=== PATIENT | male | born 1955 | race African-American/Black ===

== ENCOUNTER 2019-07-12 09:56 | Observation (INO) ==
[2019-07-12 11:14] LABS: Basophils % 0.2 % (0.0-0.8); Eosinophils % 0.3 % (0.00-10.9); Hematocrit 22.5 VOL% (42.0-52.0); Hemoglobin 6.8 GM/DL (14.0-18.0); Immature Granulocytes % 0.5 %; Immature Granulocytes Absolute 0.03 #; Lymphocytes # 0.9 10*3/uL (1.4-4.0); Lymphocytes % 14.4 % (21.2-54.2); Mean Corpuscular HGB Conc 30.2 GM/DL (32-36); Mean Corpuscular Volume 98.3 FL (87-102); Mean Platelet Volume 10.4 FL (9.6-12.0); Monocytes % 5.3 % (1.7-12.7); Neutrophils % 79.3 % (38.7-73.9); Platelet Count 235 T/CUMM (130-400); Red Blood Count 2.29 MC/CUMM (3.8-5.5); White Blood Count 6.4 T/CUMM (4-12)
[2019-07-12 11:42] LABS: Albumin 2.3 G/DL (3.4-5.0); Bilirubin,Total 0.4 MG/DL (0.2-1.0); Ferritin 164.1 ng/ml (26-388); Osmolality,Calculated 303.5 MOS/KG (273-304); Total Protein 6.3 G/DL (6.4-8.3)
[2019-07-12] MEDS ORDERED: SODIUM CHLORIDE 0.9% 500 ML IV STA (12:11)
[2019-07-12] MEDS ORDERED: DEXTROSE 50% 25 GM/50 ML VIAL IV PRN (13:09)
[2019-07-12] MEDS ORDERED: ONDANSETRON 4 MG/2 ML VIAL IV PRN (13:09)
[2019-07-12] MEDS ORDERED: DEXTROSE 10% 250 ML BAG IV PRN (13:09)
[2019-07-12] MEDS ORDERED: GLUCAGON 1 MG VIAL IM PRN ×2 (13:09)
[2019-07-12] MEDS ORDERED: SODIUM CHLORIDE 0.9% 1,000 ML IV PRN (13:16)
[2019-07-12] MEDS ORDERED: AZITHROMYCIN INJ 500 MG in SODIUM CHLORIDE 0.9% 250 ML IV SCH (15:00)
[2019-07-12] MEDS ORDERED: cefTRIAXone 1,000 MG in SODIUM CHLORIDE 0.9% 100 ML IV SCH (15:00)
[2019-07-12] MEDS ORDERED: INSULIN LISPRO 100 UNIT/ML SUBCUT SCH (16:30)
[2019-07-12] MEDS: INSULIN LISPRO 100 UNIT/ML SUBCUT SCH ×2 (16:54→21:59)
[2019-07-12] MEDS: ZINC SULFATE 220 MG CAPSULE PO SCH (21:15)
[2019-07-12] MEDS: HYDROXYCHLOROQUINE 200 MG TABLET PO SCH (21:15)
[2019-07-12 22:02] LABS: Hematocrit 25.8 VOL% (42.0-52.0); Hemoglobin 7.9 GM/DL (14.0-18.0)
[2019-07-13 05:20] LABS: Basophils % 0.1 % (0.0-0.8); Eosinophils # 0.1 10*3/uL (0.0-0.87); Eosinophils % 0.8 % (0.00-10.9); Hemoglobin 7.6 GM/DL (14.0-18.0); Immature Granulocytes % 0.7 %; Immature Granulocytes Absolute 0.05 #; Lymphocytes # 1.1 10*3/uL (1.4-4.0); Lymphocytes % 15.5 % (21.2-54.2); Mean Corpuscular HGB Conc 31.7 GM/DL (32-36); Mean Corpuscular Volume 93.4 FL (87-102); Mean Platelet Volume 10.8 FL (9.6-12.0); Monocytes % 5.5 % (1.7-12.7); Neutrophils % 77.4 % (38.7-73.9); Platelet Count 215 T/CUMM (130-400); Red Blood Count 2.57 MC/CUMM (3.8-5.5); Red Cell Distribution Width 14.6 % (9.3-17.3); White Blood Count 7.3 T/CUMM (4-12)
[2019-07-13 05:47] LABS: Calcium 8.2 MG/DL (8.5-10.1); Osmolality,Calculated 301.7 MOS/KG (273-304)
[2019-07-13] MEDS: INSULIN LISPRO 100 UNIT/ML SUBCUT SCH ×4 (09:07→20:39)
[2019-07-13] MEDS: HYDROXYCHLOROQUINE 200 MG TABLET PO SCH ×2 (09:11→20:39)
[2019-07-13 10:44] LABS: Basophils % 0.1 % (0.0-0.8); Eosinophils # 0.1 10*3/uL (0.0-0.87); Eosinophils % 1.2 % (0.00-10.9); Hematocrit 23.4 VOL% (42.0-52.0); Hemoglobin 7.3 GM/DL (14.0-18.0); Immature Granulocytes % 0.7 %; Immature Granulocytes Absolute 0.05 #; Mean Corpuscular HGB Conc 31.2 GM/DL (32-36); Mean Corpuscular Volume 96.7 FL (87-102); Mean Platelet Volume 10.4 FL (9.6-12.0); Monocytes % 5.1 % (1.7-12.7); Neutrophils % 78.9 % (38.7-73.9); Platelet Count 241 T/CUMM (130-400); Red Blood Count 2.42 MC/CUMM (3.8-5.5); Red Cell Distribution Width 14.6 % (9.3-17.3); White Blood Count 6.8 T/CUMM (4-12)
[2019-07-13 11:25] LABS: Folate > 24.0 NG/ML (5.4-24.0); Vitamin B12 > 2000 PG/ML (211-911)
[2019-07-13 11:50] LABS: Sedimentation Rate-Westergren 132 MM/HR (0-20)
[2019-07-13] MEDS ORDERED: SODIUM CHLORIDE 0.9% 1,000 ML IV PRN (12:03)
[2019-07-13] MEDS ORDERED: FUROSEMIDE 40 MG/4 ML VIAL IV PRN (12:04)
[2019-07-13] MEDS ORDERED: DOCUSATE SODIUM 100 MG CAPSULE PO PRN (12:17)
[2019-07-13] MEDS ORDERED: diphenhydrAMINE CAP 25 MG CAPSULE PO PRN (12:17)
[2019-07-13] MEDS ORDERED: SIMETHICONE CHEW 125 MG TABLET PO PRN (12:17)
[2019-07-13] MEDS ORDERED: LACTULOSE 20 GM/30 ML UDCUP PO PRN (12:17)
[2019-07-13] MEDS ORDERED: traZODone 50 MG TABLET PO PRN (12:17)
[2019-07-13] MEDS ORDERED: DEXTROSE 10% 250 ML BAG IV PRN (12:17)
[2019-07-13] MEDS ORDERED: guaiFENesin/DM ER 600-30 MG TABLET PO PRN (12:17)
[2019-07-13] MEDS ORDERED: ZALEPLON 5 MG CAPSULE PO PRN (12:17)
[2019-07-13] MEDS ORDERED: ALUMINUM/MAGNES/SIMETH MAX STR 30 ML UDCUP PO PRN (12:17)
[2019-07-13] MEDS ORDERED: NICOTINE 21 MG/24 HR PATCH TRANSDERM PRN (12:17)
[2019-07-13] MEDS ORDERED: CALCIUM CARBONATE CHEW 500 MG TABLET PO PRN (12:17)
[2019-07-13] MEDS ORDERED: BISACODYL 5 MG TABLET PO PRN (12:17)
[2019-07-13 19:26] LABS: Hematocrit 28.7 VOL% (42.0-52.0); Hemoglobin 9.1 GM/DL (14.0-18.0)
[2019-07-13] MEDS: carvediloL 12.5 MG TABLET PO SCH (20:39)
[2019-07-13] MEDS ORDERED: amLODIPine 10 MG TABLET PO SCH (21:00)
[2019-07-13] MEDS ORDERED: LIPITOR PO SCH (21:00)
[2019-07-14 05:45] LABS: Bilirubin,Total 0.5 MG/DL (0.2-1.0); Calcium 8.3 MG/DL (8.5-10.1); Osmolality,Calculated 303.8 MOS/KG (273-304); Total Protein 6.6 G/DL (6.4-8.3)
[2019-07-14 08:06] LABS: Folate 17.1 NG/ML (5.4-24.0); Vitamin B12 > 2000 PG/ML (211-911)
[2019-07-14 08:15] LABS: % Iron Saturation 11.3 % (18-50); Ferritin 187.2 ng/ml (26-388)
[2019-07-14 08:38] LABS: Hemoglobin A1 (Alkaline) 97.4 % (96.5-98.5); Hemoglobin A2 (Alkaline) 2.6 % (1.5-3.5)
[2019-07-14 08:44] LABS: Basophils % 0.3 % (0.0-0.8); Eosinophils # 0.1 10*3/uL (0.0-0.87); Eosinophils % 1.3 % (0.00-10.9); Hematocrit 26.5 VOL% (42.0-52.0); Hemoglobin 8.3 GM/DL (14.0-18.0); Immature Granulocytes % 0.7 %; Immature Granulocytes Absolute 0.05 #; Lymphocytes # 0.8 10*3/uL (1.4-4.0); Lymphocytes % 10.2 % (21.2-54.2); Mean Corpuscular HGB Conc 31.3 GM/DL (32-36); Mean Corpuscular Volume 96.4 FL (87-102); Mean Platelet Volume 10.8 FL (9.6-12.0); Monocytes % 7.1 % (1.7-12.7); Neutrophils % 80.4 % (38.7-73.9); Platelet Count 243 T/CUMM (130-400); Red Blood Count 2.75 MC/CUMM (3.8-5.5); Red Cell Distribution Width 15.2 % (9.3-17.3); White Blood Count 7.6 T/CUMM (4-12)
[2019-07-14] MEDS ORDERED: IRON SUCROSE 300 MG in SODIUM CHLORIDE 0.9% 100 ML IV ONE (08:50)
[2019-07-14] MEDS ORDERED: predniSONE 5 MG TABLET PO SCH (09:00)
[2019-07-14] MEDS ORDERED: allopurinoL 100 MG TABLET PO SCH (09:00)
[2019-07-14 09:05] LABS: Hypochromasia Slight; Lymphocytes 17 % (20-55); Segmented Neutrophils 77 % (50-85); Total Cells Counted 100
[2019-07-14 09:06] LABS: Anisocytosis 1+
[2019-07-14 09:07] LABS: Platelet Estimate Normal
[2019-07-14] MEDS: INSULIN LISPRO 100 UNIT/ML SUBCUT SCH ×2 (09:10→11:32)
[2019-07-14] MEDS: HYDROXYCHLOROQUINE 200 MG TABLET PO SCH (09:10)
[2019-07-14] MEDS: carvediloL 12.5 MG TABLET PO SCH (09:10)
[2019-07-14] MEDS: ZINC SULFATE 220 MG CAPSULE PO SCH (09:14)
[2019-07-14 11:36] VITALS: BP 114/60
== END 2019-07-14 15:07 | disposition home or self-care (01) ==
LOC: N.EDINP 09:56 → N.ED 09:56 → SUATTDRO 13:09 → SUPCPDRO 13:09 → N.2W 15:37
PROVIDERS: ADMIT Internal Medicine; ATTEND Internal Medicine

== ENCOUNTER 2019-09-13 05:54 | Inpatient (IN) ==
[2019-09-13] MEDS: SODIUM CHLORIDE 0.9% 1,000 ML IV SCH (06:51)
[2019-09-13] MEDS: DEXTROSE 10% 250 ML BAG IV PRN ×2 (06:52→11:54)
[2019-09-13] MEDS ORDERED: LIDOCAINE 2% 5 ML VIAL ONE (09:00)
[2019-09-13] MEDS ORDERED: propofoL 200 MG/20 ML VIAL IV ONE (09:00)
[2019-09-13] MEDS ORDERED: ONDANSETRON 4 MG/2 ML VIAL IV PRN (09:53)
[2019-09-13] MEDS ORDERED: MAGNESIUM HYDROXIDE SUSP 30 ML UDCUP PO PRN (09:53)
[2019-09-13] MEDS ORDERED: LACTATED RINGERS 1,000 ML IV SCH (10:00)
[2019-09-13] MEDS ORDERED: GLUCAGON 1 MG VIAL IM PRN (10:13)
[2019-09-13] MEDS ORDERED: DEXTROSE 10% 250 ML BAG IV PRN (10:13)
[2019-09-13] MEDS ORDERED: cefOXitin 2,000 MG in SYRINGE 1 EACH IV ONE (10:37)
[2019-09-13] MEDS ORDERED: LORazepam 2 MG/1 ML VIAL IV PRN (10:39)
[2019-09-13] MEDS ORDERED: hydrALAZINE 20 MG/1 ML VIAL IV PRN (10:41)
[2019-09-13 10:58] LABS: Basophils % 0.4 % (0.0-0.8); Eosinophils # 0.2 10*3/uL (0.0-0.87); Hematocrit 24.3 VOL% (42.0-52.0); Hemoglobin 7.4 GM/DL (14.0-18.0); Immature Granulocytes % 0.2 %; Immature Granulocytes Absolute 0.01 #; Lymphocytes % 17.8 % (21.2-54.2); Mean Corpuscular HGB Conc 30.5 GM/DL (32-36); Mean Platelet Volume 10.7 FL (9.6-12.0); Monocytes % 9.8 % (1.7-12.7); Neutrophils % 68.8 % (38.7-73.9); Platelet Count 214 T/CUMM (130-400); Red Blood Count 2.36 MC/CUMM (3.8-5.5); Red Cell Distribution Width 16.2 % (9.3-17.3); White Blood Count 5.6 T/CUMM (4-12)
[2019-09-13 11:08] LABS: PT Patient Result 10.5 SECS (9.8-11.9); Partial Thromboplastin Time 30.8 SECS (23.9-33.8)
[2019-09-13] MEDS: THIAMINE INJ 100 MG, FOLIC ACID INJ 1 MG, MULTIVITAMIN INJ 10 ML in SODIUM CHLORIDE 0.9... IV SCH (11:13)
[2019-09-13 11:31] LABS: Alanine Aminotransferase 21 U/L (16-61); Albumin 2.6 G/DL (3.4-5.0); Alkaline Phosphatase 131 U/L (45-117); Aspartate Amino Transferase 17 U/L (0-37); Bilirubin,Total < 0.39 MG/DL (0.2-1.0); Blood Urea Nitrogen 35 MG/DL (7-18); Calcium 8.7 MG/DL (8.5-10.1); Estimated Glom Filtration Rate 17 ML/MIN; Glucose 92 MG/DL (74-106); Osmolality,Calculated 295.7 MOS/KG (273-304); Total Protein 6.7 G/DL (6.4-8.3)
[2019-09-13 11:35] LABS: Calcium 8.7 MG/DL (8.5-10.1); Osmolality,Calculated 293.8 MOS/KG (273-304)
[2019-09-13] MEDS: INSULIN REGULAR 100 UNIT/ML SUBCUT SCH ×3 (12:29→23:15)
[2019-09-13] MEDS ORDERED: MORPHINE 4 MG/1 ML VIAL IV PRN (15:17)
[2019-09-13] MEDS ORDERED: SODIUM CHLORIDE 0.9% 1,000 ML IV PRN (17:02)
[2019-09-13] MEDS: PANTOPRAZOLE 40 MG VIAL IV SCH (20:20)
[2019-09-13] MEDS: DEXTROSE 5% NACL 0.45% 1,000 ML IV SCH (22:07)
[2019-09-14 05:14] LABS: Basophils % 0.3 % (0.0-0.8); Eosinophils # 0.1 10*3/uL (0.0-0.87); Eosinophils % 1.7 % (0.00-10.9); Hematocrit 22.7 VOL% (42.0-52.0); Immature Granulocytes % 0.1 %; Immature Granulocytes Absolute 0.01 #; Lymphocytes # 1.3 10*3/uL (1.4-4.0); Lymphocytes % 17.1 % (21.2-54.2); Mean Corpuscular HGB Conc 30.8 GM/DL (32-36); Mean Corpuscular Volume 102.3 FL (87-102); Mean Platelet Volume 10.5 FL (9.6-12.0); Monocytes % 8.6 % (1.7-12.7); Neutrophils % 72.2 % (38.7-73.9); Platelet Count 203 T/CUMM (130-400); Red Blood Count 2.22 MC/CUMM (3.8-5.5); Red Cell Distribution Width 15.8 % (9.3-17.3); White Blood Count 7.5 T/CUMM (4-12)
[2019-09-14 05:33] LABS: Calcium 8.3 MG/DL (8.5-10.1); Osmolality,Calculated 287.3 MOS/KG (273-304)
[2019-09-14] MEDS: INSULIN REGULAR 100 UNIT/ML SUBCUT SCH ×3 (05:39→17:10)
[2019-09-14] MEDS ORDERED: ALVIMOPAN 12 MG CAPSULE PO ONE (06:30)
[2019-09-14] MEDS: PANTOPRAZOLE 40 MG VIAL IV SCH ×2 (08:09→20:40)
[2019-09-14] MEDS ORDERED: ERTAPENEM 1,000 MG in SODIUM CHLORIDE 0.9% 100 ML IV ONE (09:00)
[2019-09-14] MEDS ORDERED: SODIUM CHLORIDE 0.9% 1,000 ML IV PRN (09:30)
[2019-09-14] MEDS ORDERED: DEXTROSE 50% 25 GM/50 ML VIAL IV PRN (09:47)
[2019-09-14] MEDS ORDERED: DEXAMETHASONE 4 MG/1 ML VIAL ONE ×2 (10:53→15:47)
[2019-09-14] MEDS ORDERED: MIDAZOLAM 2 MG/2 ML VIAL ONE (10:53)
[2019-09-14] MEDS ORDERED: LIDOCAINE 1% 5 ML VIAL ONE (10:53)
[2019-09-14] MEDS ORDERED: BUPIVACAINE MPF 0.5% /EPI 30 ML VIAL ONE (10:53)
[2019-09-14] MEDS ORDERED: LIDOCAINE 1%/EPI INJ 20 ML VIAL ONE (11:34)
[2019-09-14] MEDS ORDERED: TISSUE ADHESIVE 1 EACH APPLICATOR TOP ONE (11:34)
[2019-09-14] MEDS ORDERED: BUPIVACAINE MPF 0.25% 30 ML VIAL ONE (11:35)
[2019-09-14] MEDS ORDERED: fentaNYL 250 MCG/5 ML VIAL ONE (12:49)
[2019-09-14] MEDS ORDERED: LIDOCAINE 2% 5 ML VIAL ONE (15:46)
[2019-09-14] MEDS ORDERED: propofoL 200 MG/20 ML VIAL IV ONE (15:46)
[2019-09-14] MEDS ORDERED: PHENYLEPHRINE 1 MG/10 ML SYRINGE IV ONE (15:47)
[2019-09-14] MEDS ORDERED: ONDANSETRON 4 MG/2 ML VIAL ONE (15:47)
[2019-09-14] MEDS ORDERED: KETOROLAC 30 MG/1 ML VIAL ONE (15:47)
[2019-09-14] MEDS ORDERED: SEVOFLURANE 1 UNIT/15 MINUTE INH ONE (15:47)
[2019-09-14] MEDS ORDERED: ETOMIDATE 40 MG/20 ML VIAL IV ONE (15:47)
[2019-09-14] MEDS ORDERED: GLYCOPYRROLATE 0.4 MG/2 ML VIAL ONE (15:47)
[2019-09-14] MEDS ORDERED: PHENYLEPHRINE DRIP 20 MG/250 ML PREMIX IV ONE (15:47)
[2019-09-14 15:48] LABS: Apearance,Urine CLEAR (Clear); Bacteria,Urine Occasional /HPF (Few); Bilirubin,Urine Negative (Negative); Blood, Urine Negative (Negative); Glucose,Urine (UA) >=500 mg/dL (Negative); Ketones,Urine Negative (Negative); Mucus,Urine Occasional /LPF (Occasional); Nitrite,Urine Negative (Negative); Protein,Urine 30 MG/DL; RBC,Urine 7 /HPF (0-4); Squamous Epithelial Cell,Urine Occasional /HPF (0-10); Urine Color Yellow (Yellow); Urine Specific Gravity 1.009 (1.001-1.035); Urine Urobilinogen < 2.0 EU/DL (0.2-1.0); WBC,Urine <1 /HPF (0-6)
[2019-09-14] MEDS ORDERED: NEOSTIGMINE 10 MG/10 ML VIAL ONE (15:48)
[2019-09-14] MEDS ORDERED: LACTATED RINGERS 1,000 ML IV ONE (15:48)
[2019-09-14] MEDS ORDERED: ROCURONIUM 100 MG/10 ML VIAL IV ONE (15:48)
[2019-09-14] MEDS ORDERED: HYDROmorphone 2 MG/1 ML VIAL IV PRN (16:33)
[2019-09-14] MEDS: SODIUM CHLORIDE 0.9% 1,000 ML IV SCH (16:52)
[2019-09-14] MEDS: THIAMINE INJ 100 MG, FOLIC ACID INJ 1 MG, MULTIVITAMIN INJ 10 ML in SODIUM CHLORIDE 0.9... IV SCH (17:08)
[2019-09-14 17:38] LABS: Basophils % 0.1 % (0.0-0.8); Hematocrit 28.6 VOL% (42.0-52.0); Hemoglobin 8.7 GM/DL (14.0-18.0); Immature Granulocytes % 0.2 %; Immature Granulocytes Absolute 0.02 #; Lymphocytes # 0.4 10*3/uL (1.4-4.0); Lymphocytes % 4.1 % (21.2-54.2); Mean Corpuscular HGB Conc 30.4 GM/DL (32-36); Mean Corpuscular Volume 100.7 FL (87-102); Mean Platelet Volume 10.4 FL (9.6-12.0); Monocytes % 4.6 % (1.7-12.7); Platelet Count 229 T/CUMM (130-400); Red Blood Count 2.84 MC/CUMM (3.8-5.5); Red Cell Distribution Width 17.1 % (9.3-17.3); White Blood Count 9.4 T/CUMM (4-12)
[2019-09-14] MEDS: LACTATED RINGERS 1,000 ML IV SCH (17:47)
[2019-09-14 18:02] LABS: Calcium 8.2 MG/DL (8.5-10.1); Osmolality,Calculated 286.8 MOS/KG (273-304)
[2019-09-14 19:16] LABS: Lymphocytes 8 % (20-55); Segmented Neutrophils 90 % (50-85); Total Cells Counted 100
[2019-09-14 19:17] LABS: Hypochromasia Slight; Macrocytosis 1+; Poikilocytosis 1+; Polychromasia 1+
[2019-09-14 19:18] LABS: Platelet Estimate Normal
[2019-09-14] MEDS: DEXTROSE 5% NACL 0.45% 1,000 ML IV SCH (20:37)
[2019-09-14] MEDS: ALVIMOPAN 12 MG CAPSULE PO SCH ×2 (20:38→20:42)
[2019-09-15] MEDS: INSULIN REGULAR 100 UNIT/ML SUBCUT SCH ×2 (00:09→06:12)
[2019-09-15] MEDS: LACTATED RINGERS 1,000 ML IV SCH (04:08)
[2019-09-15 05:37] LABS: Basophils % 0.1 % (0.0-0.8); Hematocrit 27.6 VOL% (42.0-52.0); Hemoglobin 8.7 GM/DL (14.0-18.0); Immature Granulocytes % 0.4 %; Immature Granulocytes Absolute 0.06 #; Lymphocytes # 0.5 10*3/uL (1.4-4.0); Lymphocytes % 3.7 % (21.2-54.2); Mean Corpuscular HGB Conc 31.5 GM/DL (32-36); Mean Corpuscular Volume 97.9 FL (87-102); Mean Platelet Volume 11.1 FL (9.6-12.0); Monocytes % 5.9 % (1.7-12.7); Neutrophils % 89.9 % (38.7-73.9); Platelet Count 229 T/CUMM (130-400); Red Blood Count 2.82 MC/CUMM (3.8-5.5); Red Cell Distribution Width 16.4 % (9.3-17.3); White Blood Count 14.7 T/CUMM (4-12)
[2019-09-15 05:59] LABS: Calcium 8.2 MG/DL (8.5-10.1); Osmolality,Calculated 295.8 MOS/KG (273-304)
[2019-09-15 06:03] LABS: Albumin 2.4 G/DL (3.4-5.0); Bilirubin,Total 0.6 MG/DL (0.2-1.0); Calcium 8.2 MG/DL (8.5-10.1); Total Protein 6.6 G/DL (6.4-8.3)
[2019-09-15 07:40] LABS: Band Neutrophils 1 % (0-10); Hypochromasia 2+; Lymphocytes 3 % (20-55); Platelet Estimate Normal; Segmented Neutrophils 90 % (50-85); Total Cells Counted 100
[2019-09-15 08:29] VITALS: BP 129/70
[2019-09-15] MEDS ORDERED: ENOXAPARIN 30 MG/0.3 ML SYRINGE SUBCUT SCH (10:07)
== END 2019-09-15 09:27 | disposition home or self-care (01) | DRG 330 ==
LOC: N.4EOUT 05:54 → N.GILAB 05:54 → N.4E 09:28
PROVIDERS: ADMIT Internal Medicine Gastroenterology; ATTEND Internal Medicine